=== PATIENT | female | born 1960 | race Caucasian/White ===

== ENCOUNTER 2018-10-18 10:49 | Emergency (ER) | payer MEDICARE, OTHER ==
[2018-10-18] MEDS ORDERED: SODIUM CHLORIDE 0.9% 1,000 ML IV STA ×2 (10:56)
[2018-10-18 10:59] VITALS: BP 143/118; PULSE 101; RESP 20; TEMP 98.5
[2018-10-18 11:06] LABS: Glucose,Whole Blood 128 mg/dL (75-99)
--- NOTE | 2018-10-18 11:17 | ED ---
Head Injury HPI - General Chief complaint: Trauma Stated complaint: Fall Time Seen by Provider: 10/18/18 10:49 Source: patient, RN notes reviewed Mode of arrival: ambulatory Limitations: altered mental status - History of Present Illness Initial comments: This is a 57-year-old female with a history of CHF who was found face down in her bathroom when someone called for a wellness check. Son no how long she lay on the floor she is confused awake and alert oriented times one she was very lethargic upon initial encounter by a paramedics. She seemed to be favoring her left upper extremity she complains of head pain. She did not seem to have any focal deficits however. Patient was upgraded to a priority 2 trauma I did discuss the case with Dr. Marbin BELL Complaint: head injury, head pain, fall - Related Data Home Medications Medication Instructions Recorded Confirmed Baclofen [Lioresal] 20 mg PO Q8H 10/18/18 10/18/18 Ezetimibe [Zetia] 10 mg PO DAILY 10/18/18 10/18/18 Furosemide [Lasix] 20 mg PO BID 10/18/18 10/18/18 Losartan [Cozaar] 50 mg PO DAILY 10/18/18 10/18/18 Raloxifene [Evista] 60 mg PO DAILY 10/18/18 10/18/18 Rosuvastatin Calcium [Crestor] 5 mg PO Q48H 10/18/18 10/18/18 oxyCODONE ER [OxyCONTIN] 15 mg PO Q12HR 10/18/18 10/18/18 oxyCODONE-APAP 10-325MG [Percocet 1 tab PO Q12H PRN 10/18/18 10/18/18 10-325 mg] Allergies/Adverse reactions: Allergies Allergy/AdvReac Type Severity Reaction Status Date / Time Unable to Assess Allergy Verified 10/18/18 11:59 Review of Systems ROS Statement: Those systems with pertinent positive or pertinent negative responses have been documented in the HPI. ROS Other: All systems not noted in ROS Statement are negative. Limitations: ROS unobtainable due to patients medical condition Past Medical History Past Medical History: Unable to Obtain, Heart Failure, Hyperlipidemia, Hypertension Additional Past Medical History / Comment(s): history obtained from EMS History of Any Multi-Drug Resistant Organisms: None Reported Past Surgical History: Unable to Obtain Past Psychological History: Unable to Obtain Smoking Status: Unknown if ever smoked Past Alcohol Use History: Unable to Obtain Past Drug Use History: Unable to Obtain General Exam - General Exam Comments Initial Comments: Physical well-developed well-nourished female who is awake alert oriented 1 she does respond to questioning however. She was a cervical collar she does demonstrate multiple facial contusions evidence of a lip laceration to the lower lip. Limitations: altered mental status, physical limitation General appearance: lethargic Head exam: Present: normocephalic, other (Multiple bruising seen to the facial region no obvious step-off or crepitation. Some evidence of tenderness palpation of the musculature of the neck) Eye exam: Present: PERRL, EOMI, periorbital swelling, periorbital tenderness ENT exam: Present: mucous membranes dry, TM's normal bilaterally, other (Dry blood seen in the oropharynx evidence of a lower lip laceration. Dentition at this time appears be intact) Neck exam: Present: normal inspection, other (No stridor JVD or bruits several collar is in place no definite midline tenderness no step-off or crepitation is some paraspinous tenderness and sternocleidomastoid tenderness). Absent: lymphadenopathy, thyromegaly Respiratory exam: Present: normal lung sounds bilaterally. Absent: respiratory distress, wheezes, rales, rhonchi, stridor Cardiovascular Exam: Present: regular rate, normal rhythm, normal heart sounds. Absent: systolic murmur, diastolic murmur, rubs, gallop, clicks GI/Abdominal exam: Present: soft, normal bowel sounds. Absent: distended, tenderness, guarding, rebound, rigid Rectal exam: Present: normal inspection Extremities exam: Present: normal inspection, full ROM, tenderness (Tenderness p alpation of the left forearm no obvious deformity some bruising is seen over the right proximal lateral humerus no step-off or crepitation some evidence of pressure sores seen on the left forearm stage I), normal capillary refill. Absent: pedal edema, joint swelling, calf tenderness Back exam: Present: normal inspection Neurological exam: Present: alert, altered, CN II-XII intact, other ([place] Coma Scale is a 13). Absent: motor sensory deficit Psychiatric exam: Present: flat affect Skin exam: Present: warm, dry. Absent: intact, normal color, rash Course Vital Signs 10/18/18 10:54 Temperature 98.5 F Pulse Rate 101 H Respiratory 20 Rate Blood Pressure 143/118 O2 Sat by Pulse 100 Oximetry - Reevaluation(s) Reevaluation #1: 10/18/18 13:27 Reevaluation after return from CAT scan revealed no change in the patient's mental status she still remains a Nusrat approximately 13. Reevaluation #2: 10/18/18 13:28 I did discuss the initial findings the patient's daughter was present including the eventually for transfer to a tertiary care facility. [facility] the patient's family would like the patient be transferred. Reevaluation #3: 10/18/18 13:31 hall monitor: Patient did require cardiac monitoring due to the fall and unknown etiology. Monitor was placed rule out dysrhythmia. The rate was sinus rhythm rate of 80 upon arrival no acute ST-T wave changes or dysrhythmia were noted. Procedures - Orthopedic Splinting/Casting Injury #1 Side: right Lower Extremity Injury Location: short leg, ankle Lower Extremity Immobilizer: posterior splint, stirrup splint (5 x 30 OCL splint and a 3 x 35 sterile were used to stabilize the patient's fracture. Good neurovascular return and examination afterwards. Patient tolerated this well. This is applied by me) Medical Decision Making - Medical Decision Making Patient remains arousable glass go 13. I did discuss the case with Dr. Yves [facility] was agreed to accept the patient transfer. Be transferred via EMS - Lab Data Result diagrams: 10/18/18 11:00 10/18/18 11:00 Lab Results 10/18/18 10/18/18 10/18/18 Range/Units 10:59 11:00 11:00 WBC (3.8-10.6) k/uL RBC (3.80-5.40) m/uL Hgb (11.4-16.0) gm/dL Hct (34.0-46.0) % MCV (80.0-100.0) fL MCH (25.0-35.0) pg MCHC (31.0-37.0) g/dL RDW (11.5-15.5) % Plt Count (150-450) k/uL Neutrophils % % Lymphocytes % % Monocytes % % Eosinophils % % Basophils % % Neutrophils # (1.3-7.7) k/uL Lymphocytes # (1.0-4.8) k/uL Monocytes # (0-1.0) k/uL Eosinophils # (0-0.7) k/uL Basophils # (0-0.2) k/uL PT (9.0-12.0) sec INR (<1.2) APTT (22.0-30.0) sec Sodium 139 (137-145) mmol/L Potassium 3.3 L (3.5-5.1) mmol/L Chloride 104 (98-107) mmol/L Carbon Dioxide 26 (22-30) mmol/L Anion Gap 9 mmol/L BUN 15 (7-17) mg/dL Creatinine 0.94 (0.52-1.04) mg/dL Est GFR (CKD-EPI)AfAm 77 (>60 ml/min/1.73 sqM) Est GFR (CKD-EPI)NonAf 67 (>60 ml/min/1.73 sqM) Glucose 135 H (74-99) mg/dL POC Glucose (mg/dL) 128 H (75-99) mg/dL POC Glu Clinical Appeals Rn ID November Plasma Lactic Acid Manuel (0.7-2.0) mmol/L Calcium 9.7 (8.4-10.2) mg/dL Magnesium 2.2 (1.6-2.3) mg/dL Total Bilirubin 0.6 (0.2-1.3) mg/dL AST 40 H (14-36) U/L ALT 34 (9-52) U/L Alkaline Phosphatase 114 (38-126) U/L Ammonia <9 (<30) umol/L Troponin I (0.000-0.034) ng/mL Total Protein 6.7 (6.3-8.2) g/dL Albumin 4.0 (3.5-5.0) g/dL Urine Color Urine Appearance (Clear) Urine pH (5.0-8.0) Ur Specific [place] (1.001-1.035) Urine Protein (Negative) Urine Glucose (UA) (Negative) Urine Ketones (Negative) Urine Blood (Negative) Urine Nitrite (Negative) Urine Bilirubin (Negative) Urine Urobilinogen (<2.0) mg/dL Ur Leukocyte Esterase (Negative) Urine Opiates Screen (NotDetected) Ur Oxycodone Screen (NotDetected) Urine Methadone Screen (NotDetected) Ur Propoxyphene Screen (NotDetected) Ur Barbiturates Screen (NotDetected) U Tricyclic Antidepress (NotDetected) Ur Phencyclidine Scrn (NotDetected) Ur Amphetamines Screen (NotDetected) U Methamphetamines Scrn (NotDetected) U Benzodiazepines Scrn (NotDetected) Urine Cocaine Screen (NotDetected) U Marijuana (THC) Screen (NotDetected) Serum Alcohol <10 mg/dL Blood Type Blood Type Confirm Blood Type Recheck Antibody Screen Spec Expiration Date 10/18/18 10/18/18 10/18/18 Range/Units 11:00 11:00 11:00 WBC 15.5 H (3.8-10.6) k/uL RBC 3.85 (3.80-5.40) m/uL Hgb 11.5 (11.4-16.0) gm/dL Hct 33.4 L (34.0-46.0) % MCV 87.0 (80.0-100.0) fL MCH 30.0 (25.0-35.0) pg MCHC 34.5 (31.0-37.0) g/dL RDW 14.9 (11.5-15.5) % Plt Count 304 (150-450) k/uL Neutrophils % 90 % Lymphocytes % 3 % Monocytes % 5 % Eosinophils % 1 % Basophils % 0 % Neutrophils # 14.0 H (1.3-7.7) k/uL Lymphocytes # 0.5 L (1.0-4.8) k/uL Monocytes # 0.8 (0-1.0) k/uL Eosinophils # 0.1 (0-0.7) k/uL Basophils # 0.0 (0-0.2) k/uL PT 9.7 (9.0-12.0) sec INR 0.9 (<1.2) APTT 21.2 L (22.0-30.0) sec Sodium (137-145) mmol/L Potassium (3.5-5.1) mmol/L Chloride (98-107) mmol/L Carbon Dioxide (22-30) mmol/L Anion Gap mmol/L BUN (7-17) mg/dL Creatinine (0.52-1.04) mg/dL Est GFR (CKD-EPI)AfAm (>60 ml/min/1.73 sqM) Est GFR (CKD-EPI)NonAf (>60 ml/min/1.73 sqM) Glucose (74-99) mg/dL POC Glucose (mg/dL) (75-99) mg/dL POC Glu Clinical Appeals Rn ID Plasma Lactic Acid Manuel 1.4 (0.7-2.0) mmol/L Calcium (8.4-10.2) mg/dL Magnesium (1.6-2.3) mg/dL Total Bilirubin (0.2-1.3) mg/dL AST (14-36) U/L ALT (9-52) U/L Alkaline Phosphatase (38-126) U/L Ammonia (<30) umol/L Troponin I (0.000-0.034) ng/mL Total Protein (6.3-8.2) g/dL Albumin (3.5-5.0) g/dL Urine Color Urine Appearance (Clear) Urine pH (5.0-8.0) Ur Specific [place] (1.001-1.035) Urine Protein (Negative) Urine Glucose (UA) (Negative) Urine Ketones (Negative) Urine Blood (Negative) Urine Nitrite (Negative) Urine Bilirubin (Negative) Urine Urobilinogen (<2.0) mg/dL Ur Leukocyte Esterase (Negative) Urine Opiates Screen (NotDetected) Ur Oxycodone Screen (NotDetected) Urine Methadone Screen (NotDetected) Ur Propoxyphene Screen (NotDetected) Ur Barbiturates Screen (NotDetected) U Tricyclic Antidepress (NotDetected) Ur Phencyclidine Scrn (NotDetected) Ur Amphetamines Screen (NotDetected) U Methamphetamines Scrn (NotDetected) U Benzodiazepines Scrn (NotDetected) Urine Cocaine Screen (NotDetected) U Marijuana (THC) Screen (NotDetected) Serum Alcohol mg/dL Blood Type Blood Type Confirm Blood Type Recheck Antibody Screen Spec Expiration Date 10/18/18 10/18/18 10/18/18 Range/Units 11:00 11:00 12:38 WBC (3.8-10.6) k/uL RBC (3.80-5.40) m/uL Hgb (11.4-16.0) gm/dL Hct (34.0-46.0) % MCV (80.0-100.0) fL MCH (25.0-35.0) pg MCHC (31.0-37.0) g/dL RDW (11.5-15.5) % Plt Count (150-450) k/uL Neutrophils % % Lymphocytes % % Monocytes % % Eosinophils % % Basophils % % Neutrophils # (1.3-7.7) k/uL Lymphocytes # (1.0-4.8) k/uL Monocytes # (0-1.0) k/uL Eosinophils # (0-0.7) k/uL Basophils # (0-0.2) k/uL PT (9.0-12.0) sec INR (<1.2) APTT (22.0-30.0) sec Sodium (137-145) mmol/L Potassium (3.5-5.1) mmol/L Chloride (98-107) mmol/L Carbon Dioxide (22-30) mmol/L Anion Gap mmol/L BUN (7-17) mg/dL Creatinine (0.52-1.04) mg/dL Est GFR (CKD-EPI)AfAm (>60 ml/min/1.73 sqM) Est GFR (CKD-EPI)NonAf (>60 ml/min/1.73 sqM) Glucose (74-99) mg/dL POC Glucose (mg/dL) (75-99) mg/dL POC Glu Clinical Appeals Rn ID Plasma Lactic Acid Manuel (0.7-2.0) mmol/L Calcium (8.4-10.2) mg/dL Magnesium (1.6-2.3) mg/dL Total Bilirubin (0.2-1.3) mg/dL AST (14-36) U/L ALT (9-52) U/L Alkaline Phosphatase (38-126) U/L Ammonia (<30) umol/L Troponin I <0.012 (0.000-0.034) ng/mL Total Protein (6.3-8.2) g/dL Albumin (3.5-5.0) g/dL Urine Color Yellow Urine Appearance Clear (Clear) Urine pH 5.5 (5.0-8.0) Ur Specific [place] 1.010 (1.001-1.035) Urine Protein Negative (Negative) Urine Glucose (UA) Negative (Negative) Urine Ketones Negative (Negative) Urine Blood Negative (Negative) Urine Nitrite Negative (Negative) Urine Bilirubin Negative (Negative) Urine Urobilinogen <2.0 (<2.0) mg/dL Ur Leukocyte Esterase Negative (Negative) Urine Opiates Screen Not Detected (NotDetected) Ur Oxycodone Screen Detected H (NotDetected) Urine Methadone Screen Not Detected (NotDetected) Ur Propoxyphene Screen Not Detected (NotDetected) Ur Barbiturates Screen Not Detected (NotDetected) U Tricyclic Antidepress Not Detected (NotDetected) Ur Phencyclidine Scrn Not Detected (NotDetected) Ur Amphetamines Screen Not Detected (NotDetected) U Methamphetamines Scrn Not Detected (NotDetected) U Benzodiazepines Scrn Not Detected (NotDetected) Urine Cocaine Screen Not Detected (NotDetected) U Marijuana (THC) Screen Not Detected (NotDetected) Serum Alcohol mg/dL Blood Type A Negative Blood Type Confirm Blood Type Recheck CABO Indicated Antibody Screen NEGATIVE Spec Expiration Date 10/21/2018 - 229910/18/18 Range/Units 12:43 WBC (3.8-10.6) k/uL RBC (3.80-5.40) m/uL Hgb (11.4-16.0) gm/dL Hct (34.0-46.0) % MCV (80.0-100.0) fL MCH (25.0-35.0) pg MCHC (31.0-37.0) g/dL RDW (11.5-15.5) % Plt Count (150-450) k/uL Neutrophils % % Lymphocytes % % Monocytes % % Eosinophils % % Basophils % % Neutrophils # (1.3-7.7) k/uL Lymphocytes # (1.0-4.8) k/uL Monocytes # (0-1.0) k/uL Eosinophils # (0-0.7) k/uL Basophils # (0-0.2) k/uL PT (9.0-12.0) sec INR (<1.2) APTT (22.0-30.0) sec Sodium (137-145) mmol/L Potassium (3.5-5.1) mmol/L Chloride (98-107) mmol/L Carbon Dioxide (22-30) mmol/L Anion Gap mmol/L BUN (7-17) mg/dL Creatinine (0.52-1.04) mg/dL Est GFR (CKD-EPI)AfAm (>60 ml/min/1.73 sqM) Est GFR (CKD-EPI)NonAf (>60 ml/min/1.73 sqM) Glucose (74-99) mg/dL POC Glucose (mg/dL) (75-99) mg/dL POC Glu Clinical Appeals Rn ID Plasma Lactic Acid Manuel (0.7-2.0) mmol/L Calcium (8.4-10.2) mg/dL Magnesium (1.6-2.3) mg/dL Total Bilirubin (0.2-1.3) mg/dL AST (14-36) U/L ALT (9-52) U/L Alkaline Phosphatase (38-126) U/L Ammonia (<30) umol/L Troponin I (0.000-0.034) ng/mL Total Protein (6.3-8.2) g/dL Albumin (3.5-5.0) g/dL Urine Color Urine Appearance (Clear) Urine pH (5.0-8.0) Ur Specific [place] (1.001-1.035) Urine Protein (Negative) Urine Glucose (UA) (Negative) Urine Ketones (Negative) Urine Blood (Negative) Urine Nitrite (Negative) Urine Bilirubin (Negative) Urine Urobilinogen (<2.0) mg/dL Ur Leukocyte Esterase (Negative) Urine Opiates Screen (NotDetected) Ur Oxycodone Screen (NotDetected) Urine Methadone Screen (NotDetected) Ur Propoxyphene Screen (NotDetected) Ur Barbiturates Screen (NotDetected) U Tricyclic Antidepress (NotDetected) Ur Phencyclidine Scrn (NotDetected) Ur Amphetamines Screen (NotDetected) U Methamphetamines Scrn (NotDetected) U Benzodiazepines Scrn (NotDetected) Urine Cocaine Screen (NotDetected) U Marijuana (THC) Screen (NotDetected) Serum Alcohol mg/dL Blood Type Blood Type Confirm A Negative Blood Type Recheck Antibody Screen Spec Expiration Date - EKG Data -: EKG Interpreted by Me EKG shows normal: sinus rhythm (Sinus rhythm of 79. A 150 to QRS duration 80 QT since QTC 360/421 low-voltage QRS no acute ST-T wave changes) - Radiology Data Radiology results: report reviewed (I did review all the imaging and report there is a trailer no fracture the right ankle noted. CAT scan head neck and facial bones reveal no evidence of any acute fractures or bleeding. Chest x-ray shows evidence of upper lobe pneumonic processes consistent with pneumonitis likely aspiration.), image reviewed Critical Care Time Critical Care Time: Yes Critical Care Time: 45 minutes of critical care time which includes initial presentation with history physical labs x-rays multiple reevaluation the patient discussed with the patient's family discussion with the accepting physician discussed with paramedics. Documentation the above this does not include the OCL application Disposition Clinical Impression: Closed head injury, Facial contusion, Lip laceration, Closed right ankle fracture, Multiple contusions, Aspiration pneumonitis Disposition: OTHER INSTITUTION NOT DEFINED Condition: Serious Referrals: Nonstaff,Physician [REFERRING] - 1-2 days - Out of Hospital Transfer - Req. Specs Out of Hospital Transfer - Requested Specifics: Other Emergency Center
[2018-10-18 11:19] LABS: Basophils % (A) 0 %; Eosinophils # (A) 0.1 k/uL (0-0.7); Eosinophils % (A) 1 %; HCT 33.4 % (34.0-46.0); HGB 11.5 gm/dL (11.4-16.0); Lymphocytes # (A) 0.5 k/uL (1.0-4.8); Lymphocytes % (A) 3 %; MCHC 34.5 g/dL (31.0-37.0); Mean Platelet Volume 6.5; Monocytes # (A) 0.8 k/uL (0-1.0); Monocytes % (A) 5 %; Neutrophils % (A) 90 %; Platelet Count 304 k/uL (150-450); RBC 3.85 m/uL (3.80-5.40); RDW 14.9 % (11.5-15.5); WBC 15.5 k/uL (3.8-10.6)
[2018-10-18 11:43] LABS: INR 0.9 (<1.2); Prothrombin Time 9.7 sec (9.0-12.0)
--- NOTE | 2018-10-18 11:45 | CT ---
EXAMINATION TYPE: CT brain lacy tobias DATE OF EXAM: 10/18/2018 COMPARISON: NONE HISTORY: Fall with multiple facial contusions, head pain and neck pain. CT DLP: 969.5 mGycm. Automated Exposure Control for Dose Reduction was Utilized. TECHNIQUE: CT scan of the facial bones, head and cervical spine are performed without contrast. FINDINGS: Frontal and left parietal scalp hematomas are seen with overlying soft tissue swelling. S upraorbital soft tissue swelling is seen bilaterally. No post septal soft tissue swelling. There is n o acute intracranial hemorrhage, mass effect, or midline shift identified. The ventricles and sulci are within normal limits in size. The globes are intact and the visualized sinuses are clear. Cervical spine is visualized in its entirety from C1 through upper thoracic levels and demonstrates s atisfactory alignment without evidence of acute fracture or dislocation. Prevertebral soft tissue ap pears within normal limits. The C1-C2 articulation is unremarkable. Groundglass opacities are apprec iated at the lung apices in a peripheral distribution. No facial bone fracture is evident. Temporomandibular joints are symmetric. Bony orbits appear intact . Globes are symmetric and lenses are in place. IMPRESSION: 1. There is no acute fracture or dislocation evident in the cervical spine. No facial bone fracture. 2. No acute intracranial hemorrhage, mass effect, or midline shift is seen. 3. Multifocal frontal and left parietal scalp hematomas and soft tissue swelling extending into the s upraorbital regions bilaterally.
--- NOTE | 2018-10-18 11:46 | XR ---
EXAMINATION TYPE: XR chest 1V portable DATE OF EXAM: 10/18/2018 COMPARISON: CT neck of the same date. HISTORY: Chest pain after a fall TECHNIQUE: Single frontal view of the chest is obtained. FINDINGS: Patchy biapical opacities are appreciated but better seen on the CT neck of the same date. No pleural effusion, pulmonary vascular congestion or pneumothorax seen. The cardiac silhouette size is within normal limits. The osseous structures are intact. IMPRESSION: Patchy upper lung opacities as seen on the CT neck of the same date may represent pneumo nitis of infectious or inflammatory etiology.
[2018-10-18 11:47] LABS: ALT 34 U/L (9-52); AST 40 U/L (14-36); Alcohol <10 mg/dL; Alkaline Phosphatase 114 U/L (38-126); Anion Gap 9 mmol/L; Blood Urea Nitrogen 15 mg/dL (7-17); Calcium 9.7 mg/dL (8.4-10.2); Carbon Dioxide 26 mmol/L (22-30); Chloride 104 mmol/L (98-107); Glucose 135 mg/dL (74-99); Magnesium 2.2 mg/dL (1.6-2.3); Potassium 3.3 mmol/L (3.5-5.1); Sodium 139 mmol/L (137-145); Total Bilirubin 0.6 mg/dL (0.2-1.3); Total Protein 6.7 g/dL (6.3-8.2)
--- NOTE | 2018-10-18 11:48 | XR ---
EXAMINATION TYPE: XR forearm LT, XR humerus LT DATE OF EXAM: 10/18/2018 CLINICAL HISTORY: Left forearm pain after a fall and left humeral pain after fall TECHNIQUE: Two views of the left forearm and humerus are obtained. COMPARISON: None. FINDINGS: There is no acute fracture or dislocation seen in the left radius or ulna. The left elbow and wrist joints appear within normal limits. The overlying soft tissue appears within normal limit s. There is no acute fracture or dislocation seen in the left humerus. The left shoulder and elbow join ts appear within normal limits. The overlying soft tissue appears within normal limits. IMPRESSION: There is no acute fracture or dislocation seen in the left humerus, radius or ulna.
--- NOTE | 2018-10-18 11:49 | XR ---
EXAMINATION TYPE: XR pelvis AP view DATE OF EXAM: 10/18/2018 CLINICAL HISTORY: Pelvic pain after fall TECHNIQUE: A single AP view of the pelvis is obtained. COMPARISON: None. FINDINGS: There is no acute fracture/dislocation evident in the pelvis. Extensive postsurgical cazares es seen in the abdomen and pelvis from prior ventral hernia repair urinary bladder appears distended. The hip and sacroiliac joints appear symmetric and unremarkable. The overlying soft tissue appears unremarkable. IMPRESSION: There is no acute fracture or dislocation in the pelvis.
[2018-10-18 11:56] LABS: Partial Thromboplastin Time 21.2 sec (22.0-30.0)
[2018-10-18 12:57] LABS: Appearance,Urine Clear (Clear); Bilirubin,Urine Negative (Negative); Blood,Urine Negative (Negative); Color,Urine Yellow; Glucose,Urine (UA) Negative (Negative); Ketones,Urine Negative (Negative); Leukocyte Esterase,Urine Negative (Negative); Nitrite,Urine Negative (Negative); PH, Urine 5.5 (5.0-8.0); Protein,Urine Negative (Negative); Urobilinogen,Urine <2.0 mg/dL (<2.0)
[2018-10-18] MEDS ORDERED: DIPH,PERTUS(ACELL)TETVAC-LF 0.5 ML VIAL IM ONE (13:00)
[2018-10-18] MEDS ORDERED: PIPERACILLIN-TAZOBACTAM 3.375 GM in SODIUM CHLORIDE 0.9% 100 ML IVPB STA (13:00)
--- NOTE | 2018-10-18 13:03 | XR ---
EXAMINATION TYPE: XR ankle limited RT DATE OF EXAM: 10/18/2018 CLINICAL HISTORY: Fall with subsequent right ankle and lower extremity pain TECHNIQUE: Frontal, lateral and oblique images of the right ankle are obtained. 2 views of the right tibia and fibula were obtained COMPARISON: None. FINDINGS: Obliquely oriented 3 mm laterally displaced noncomminuted intra-articular fracture of the lateral mal leolus is seen. Noncomminuted 3 mm laterally displaced fracture of the medial malleolus is also prese nt. There is no evidence of right ankle dislocation. Oblique approximately 4 mm superiorly displaced noncomminuted fractures of the posterior malleolus is seen. Small tibiotalar joint effusion is presen t. Mild diffuse osseous demineralization is seen. Small plantar enthesophyte is noted. No additional fracture is seen of the proximal right tibia or fibula. Mild medial compartment joint space narrowing is seen of the knee. IMPRESSION: Acute minimally displaced intra-articular right trimalleolar fracture with small joint effusion as de scribed above.
[2018-10-18 13:12] LABS: Amphetamine Screen,Urine Not Detected (NotDetected); Barbiturate Screen,Urine Not Detected (NotDetected); Benzodiazepines Screen,Urine Not Detected (NotDetected); Cocaine Screen,Urine Not Detected (NotDetected); Methadone Screen, Urine Not Detected (NotDetected); Opiate Screen,Urine Not Detected (NotDetected); Oxycodone Screen, Urine Detected (NotDetected); Phencyclidine Screen,Urine Not Detected (NotDetected); Tricyclic Antidepressant,Urine Not Detected (NotDetected); Urn Cannabinoid Scrn Not Detected (NotDetected)
[2018-10-18] MEDS ORDERED: ONDANSETRON 4 MG/2 ML VIAL IVP STA (14:06)
== END 2018-10-18 14:08 | disposition short-term general hospital (02) ==
LOC: EC 10:49
DX: S82.851A Displaced trimalleolar fracture of right lower leg, initial encounter for closed fracture (principal); S01.511A Laceration without foreign body of lip, initial encounter; S40.021A Contusion of right upper arm, initial encounter; L89.891 Pressure ulcer of other site, stage 1; J69.0 Pneumonitis due to inhalation of food and vomit; Z23 Encounter for immunization; I11.0 Hypertensive heart disease with heart failure; I50.9 Heart failure, unspecified; E78.5 Hyperlipidemia, unspecified; Z79.899 Other long term (current) drug therapy; W19.XXXA Unspecified fall, initial encounter; Y92.002 Bathroom of unspecified non-institutional (private) residence as the place of occurrence of the external cause
CPT/HCPCS: 99291; 29515; 90471; 96365; 96374; 96361 ×2; 36415; 93005; 86900; 86901; 80053; 82140; 83605; 83735; 84484; 85025; 85610; 85730; 86850; 81003; 80306; 72170; 73060; 73090; 73590; 73600; 71045; 72125; 70486; 70450; 90715; G0480; J2543; J2405; 80320